=== PATIENT | male | born 1960 | race Caucasian/White ===

== ENCOUNTER 2017-04-30 02:45 | Emergency (ER) | payer OTHER, BC ==
[2017-04-30 02:54] VITALS: BP 127/95
[2017-04-30] MEDS ORDERED: BENZONATATE 100 MG CAPSULE PO ONE (04:11)
[2017-04-30] MEDS ORDERED: PREDNISONE 20 MG TABLET PO ONE (04:11)
[2017-04-30] MEDS ORDERED: IPRATROPIUM/ALBUTEROL 0.5-2.5 MG/3 ML AMPUL NEB ONE (04:11)
--- NOTE | 2017-04-30 04:24 | RADIOLOGY REPORT (SQ) ---
EXAM DESCRIPTION: CHEST SINGLE VIEW COMPLETED DATE/TIME: 04/30/2017 4:15 am REASON FOR STUDY: cough COMPARISON: Chest x-ray 02/09/2012. EXAM PARAMETERS: NUMBER OF VIEWS: One view. TECHNIQUE: Single frontal radiographic view of the chest acquired. RADIATION DOSE: NA LIMITATIONS: None. FINDINGS: LUNGS AND PLEURA: No consolidation, pneumothorax or pleural effusion. MEDIASTINUM AND HILAR STRUCTURES: No masses. Contour normal. HEART AND VASCULAR STRUCTURES: Heart normal in size. Normal vasculature. BONES: No acute findings. HARDWARE: None in the chest. IMPRESSION: NO ACUTE RADIOGRAPHIC FINDING IN THE CHEST. TECHNICAL DOCUMENTATION: JOB ID: [id number]
--- NOTE | 2017-04-30 04:36 | ER Document Report ---
ED General - General Chief Complaint: Productive Cough Stated Complaint: COUGHING UP BLOOD Time Seen by Provider: 04/30/17 03:50 Notes: Patient is a 57-year-old male without past medical history of COPD or asthma, not a smoker who presents with 2 weeks of a persistent cough and concerns of a small volume of hemoptysis the last 2 days. Patient was seen by his primary care doctor approximately 1 week ago for these symptoms and started on Tessalon Perles, albuterol and steroids without any improvement of symptoms. He reports a dry, severe cough that comes and spasms. Nothing seems to trigger the episodes and they do go away on their own. States he had 2 very small, approximately bárbara-sized blood clots come up today and this is what brought him to the emergency department. He has no history of similar symptoms in the past. No known sick contacts. No history of DVT or pulmonary embolus. He denies any chest pain or pleuritic pain. TRAVEL OUTSIDE OF THE [place] IN LAST 30 DAYS: No - Related Data Allergies/Adverse Reactions: No Known Allergies Allergy (Verified 02/22/16 08:09) Past Medical History - General Information source: Patient - Social History Smoking Status: Never Smoker Frequency of alcohol use: None Drug Abuse: None Lives with: Spouse/Significant other Family History: Reviewed & Not Pertinent Patient has suicidal ideation: No Patient has homicidal ideation: No - Past Medical History Cardiac Medical History: Reports: Hx Hypercholesterolemia Pulmonary Medical History: Denies: Hx Tuberculosis Renal/ Medical History: Denies: Hx End Stage Renal Disease, Hx Peritoneal Dialysis Past Surgical History: Reports: Hx Appendectomy. Denies: Hx Pacemaker - Immunizations Hx Diphtheria, Pertussis, Tetanus Vaccination: - unk Review of Systems - Review of Systems Notes: Constitutional: Negative for fever. HENT: Negative for sore throat. Eyes: Negative for visual changes. Cardiovascular: Negative for chest pain. Respiratory: Negative for shortness of breath. Positive for persistent cough Gastrointestinal: Negative for abdominal pain, vomiting or diarrhea. Genitourinary: Negative for dysuria. Musculoskeletal: Negative for back pain. Skin: Negative for rash. Neurological: Negative for headaches, weakness or numbness. 10 point ROS negative except as marked above and in HPI. Physical Exam - Vital signs Vitals: Temp Pulse Resp BP Pulse Ox 97.8 F 56 L 18 127/95 H 98 04/30/17 02:51 04/30/17 02:51 04/30/17 02:51 04/30/17 02:51 04/30/17 02:51 Interpretation: Normal Notes: PHYSICAL EXAMINATION: GENERAL: Well-appearing, well-nourished and in no acute distress. HEAD: Atraumatic, normocephalic. EYES: Pupils equal round and reactive to light, extraocular movements intact, sclera anicteric, conjunctiva are normal. ENT: nares patent, oropharynx clear without exudates. Moist mucous membranes. NECK: Normal range of motion, supple without lymphadenopathy LUNGS: Breath sounds clear to auscultation bilaterally and equal. No wheezes rales or rhonchi. Violent episodes of coughing HEART: Regular rate and rhythm without murmurs ABDOMEN: Soft, nontender, normoactive bowel sounds. No guarding, no rebound. No masses appreciated. EXTREMITIES: Normal range of motion, no pitting or edema. No cyanosis. NEUROLOGICAL: No focal neurological deficits. Moves all extremities spontaneously and on command. PSYCH: Normal mood, normal affect. SKIN: Warm, Dry, normal turgor, no rashes or lesions noted. Course - Re-evaluation Re-evalutation: 04/30/17 04:33 Patient presents with signs and symptoms most consistent with acute bronchitis the very small amount of associated hemoptysis. He is well-appearing, in no acute distress, does have vigorous episodes of coughing. His primary care doctor has already very appropriately treated him with steroids, albuterol and Tessalon Perles without any significant improvement. Chest x-ray here is without any evidence of an acute pneumonia. No indication for labs. His vitals are completely within normal limits without tachycardia, tachypnea or hypoxemia. I do not suspect any hemodynamically significant pulmonary hemorrhage as patient has had vigorous coughing for the past 2 weeks and is only coughed up approximately bárbara size clots which I would expect for his vigorous coughing. At this time will discharge with return precautions and follow-up recommendations. Verbal discharge instructions given a the bedside and opportunity for questions given. Medication warnings reviewed. Patient is in agreement with this plan and has verbalized understanding of return precautions and the need for primary care follow-up in the next 24-72 hours. - Vital Signs Vital signs: Temp Pulse Resp BP Pulse Ox 97.8 F 56 L 18 127/95 H 98 04/30/17 02:51 04/30/17 02:51 04/30/17 02:51 04/30/17 02:51 04/30/17 02:51 - Diagnostic Test Radiology reviewed: Image reviewed, Reports reviewed Radiology results interpreted by me: 04/30/17 04:58 Chest x-ray: No acute infiltrate or pneumothorax Discharge - Discharge Clinical Impression: Bronchitis Condition: Good Disposition: HOME, SELF-CARE Additional Instructions: You were seen for symptoms most consistent with bronchitis. This can take up to 12 weeks to fully resolve. This is generally due to a viral infection. Please follow-up with your primary doctor in the next 2-3 days. Return if you develop worsening cough, vomiting, fever >100.4, pass out, begin coughing large amounts of blood, or have any other symptoms that are concerning to you.
== END 2017-04-30 05:30 | disposition home or self-care (01) ==
LOC: ER 02:45
DX: J40 Bronchitis, not specified as acute or chronic (principal); E78.00 Pure hypercholesterolemia, unspecified
CPT/HCPCS: 71010; 99283

== ENCOUNTER 2017-10-03 06:32 | Emergency (ER) | payer OTHER, BC ==
--- NOTE | 2017-10-03 08:46 | RADIOLOGY REPORT (SQ) ---
EXAM DESCRIPTION: CT HEAD WITHOUT COMPLETED DATE/TIME: 10/03/2017 8:33 am REASON FOR STUDY: left facial numbness, stuttering COMPARISON: CT brain 02/22/2016, 02/09/2012, 08/06/2008 TECHNIQUE: Axial images acquired through the brain without intravenous contrast. Images reviewed wi th bone, brain and subdural windows. Images stored on PACS. All CT scanners at this facility use dose modulation, iterative reconstruction, and/or weight based d osing when appropriate to reduce radiation dose to as low as reasonably achievable (ALARA). [facility]: Dose Right [facility]: CareDose [facility]: Dose Right [facility]: Teradose 4D [facility]: Smart [employer] RADIATION DOSE: CT Rad equipment meets quality standard of care and radiation dose reduction techniq ues were employed. CTDIvol: 64.6 mGy. DLP: 1163 mGy-cm. mGy. LIMITATIONS: None. FINDINGS: VENTRICLES: Normal size and contour. CEREBRUM: No masses. No hemorrhage. No midline shift. No evidence for acute infarction. Normal gra y/white matter differentiation. No areas of low density in the white matter. CEREBELLUM: No masses. No hemorrhage. No alteration of density. No evidence for acute infarction. EXTRAAXIAL SPACES: No fluid collections. No masses. ORBITS AND GLOBE: No intra- or extraconal masses. Normal contour of globe without masses. CALVARIUM: No fracture. PARANASAL SINUSES: No fluid or mucosal thickening. SOFT TISSUES: No mass or hematoma. OTHER: No other significant finding. IMPRESSION: NORMAL BRAIN CT WITHOUT CONTRAST. EVIDENCE OF ACUTE STROKE: NO. COMMENT: Quality ID # [id number]: Final reports with documentation of one or more dose reduction techniques (e.g., Automated exposure control, adjustment of the mA and/or kV according to patient size, use of iterative reconstruction technique) TECHNICAL DOCUMENTATION: JOB ID: [id number] [email or web address]- All Rights Reserved
--- NOTE | 2017-10-03 08:49 | RADIOLOGY REPORT (SQ) ---
EXAM DESCRIPTION: CHEST SINGLE VIEW COMPLETED DATE/TIME: 10/03/2017 8:38 am REASON FOR STUDY: left facial numbness, stuttering COMPARISON: AP chest 04/30/2017, 02/09/2012 EXAM PARAMETERS: NUMBER OF VIEWS: One view. TECHNIQUE: Single frontal radiographic view of the chest acquired. RADIATION DOSE: NA LIMITATIONS: None. FINDINGS: LUNGS AND PLEURA: No opacities, masses or pneumothorax. No pleural effusion. MEDIASTINUM AND HILAR STRUCTURES: No masses. Contour normal. HEART AND VASCULAR STRUCTURES: Heart normal in size. Normal vasculature. BONES: No acute findings. HARDWARE: None in the chest. OTHER: No other significant finding. IMPRESSION: NO ACUTE RADIOGRAPHIC FINDING IN THE CHEST. TECHNICAL DOCUMENTATION: JOB ID: [id number] [employer]- All Rights Reserved
[2017-10-03 08:50] LABS: ABSOLUTE BASOPHILS # (AUTO) 0.1 10^3/uL (0.0-0.2); ABSOLUTE EOSINOPHILS # (AUTO) 0.3 10^3/uL (0.0-0.6); ABSOLUTE LYMPHOCYTES (AUTO) 1.5 10^3/uL (0.5-4.7); ABSOLUTE MONOCYTES (AUTO) 0.6 10^3/uL (0.1-1.4); ABSOLUTE NEUT (AUTO) 4.8 10^3/uL (1.7-8.2); EOSINOPHILS % (AUTO) 3.9 % (0-6); HEMATOCRIT 42.5 % (37.9-51.0); HEMOGLOBIN 14.7 g/dL (13.5-17.0); LYMPHOCYTES % (AUTO) 20.7 % (13-45); MEAN CORPUSCULAR HEMOGLOBIN 30.2 pg (27.0-33.4); MEAN CORPUSCULAR HGB CONC 34.6 g/dL (32.0-36.0); MEAN CORPUSCULAR VOLUME 87 fl (80-97); PLATELET COUNT 219 10^3/uL (150-450); RED BLOOD COUNT 4.86 10^6/uL (4.35-5.55); RED CELL DISTRIBUTION WIDTH 12.7 % (11.5-14.0); SEGMENTED NEUTROPHILS % (AUTO) 66.4 % (42-78); TOTAL CELLS COUNTED % (AUTO) 100 %; WHITE BLOOD COUNT 7.3 10^3/uL (4.0-10.5)
[2017-10-03 08:54] LABS: INTERNATIONAL RATION (INR) 0.89; PARTIAL THROMBOPLASTIN TIME 31.1 SEC (23.5-35.8); PROTHROMBIN TIME 12.7 SEC (11.4-15.4)
[2017-10-03] MEDS ORDERED: ONDANSETRON HCL INJ/PF 4 MG/2 ML SDV IV ONE (08:58)
[2017-10-03] MEDS ORDERED: PROCHLORPERAZINE EDISYLATE INJ 10 MG/2 ML VIAL IV ONE (08:58)
[2017-10-03] MEDS ORDERED: NORMAL SALINE 1000 ML 1,000 ML IV ONE (09:07)
--- NOTE | 2017-10-03 09:17 | EKG REPORT ---
SEVERITY:- BORDERLINE ECG - SINUS RHYTHM PROBABLE LEFT ATRIAL ABNORMALITY LOW VOLTAGE IN FRONTAL LEADS : Confirmed by: Lita Mcqueen 03-Oct-2017 09:17:15
[2017-10-03 09:19] LABS: ALANINE AMINOTRANSFERASE 63 U/L (21-72); ALBUMIN 4.7 g/dL (3.5-5.0); ALKALINE PHOSPHATASE 66 U/L (38-126); ANION GAP 11 (5-19); ASPARTATE AMINO TRANSFERASE 28 U/L (17-59); BILIRUBIN,DIRECT 0.1 mg/dL (0.0-0.4); BLOOD UREA NITROGEN 16 mg/dL (7-20); CALCIUM 9.8 mg/dL (8.4-10.2); CARBON DIOXIDE 29 mmol/L (22-30); CHLORIDE 103 mmol/L (98-107); CREATINE KINASE 90 U/L (55-170); GLUCOSE 113 mg/dL (75-110); POTASSIUM 4.2 mmol/L (3.6-5.0); TOTAL PROTEIN 6.9 g/dL (6.3-8.2)
[2017-10-03 09:31] LABS: CREATINE KINASE MB 1.57 ng/mL (<4.55)
[2017-10-03 09:34] LABS: TROPONIN I < 0.012 ng/mL
[2017-10-03] MEDS ORDERED: KETOROLAC TROMETHAMINE INJ/PF 30 MG/1 ML SDV IV ONE (10:46)
[2017-10-03] MEDS ORDERED: DEXAMETHASONE SOD PHOS INJ 10 MG/1 ML VIAL IV ONE (10:46)
--- NOTE | 2017-10-03 10:50 | ER Document Report ---
ED General - General Chief Complaint: Headache Stated Complaint: POSSIBLE MIGRAINE Time Seen by Provider: 10/03/17 08:52 TRAVEL OUTSIDE OF THE [place] IN LAST 30 DAYS: No - HPI Patient complains to provider of: Headache Notes: Patient coming in stating he is experiencing migraines. Patient states has history of migraines used to be on Topamax however had by side effects therefore and is on carbidopa for this and sending the patient does have Parkinson's disease.Taken off Topamax. Patient has a resting tremor pill- rolling his right hand patient states when he only gets a migraine headache he does have some drooping of the left side of his face. Patient also states he does develop a stutter. According to the at bedside this is normal for the patient. Patient states came in today because of worsening of headache. Denies any fevers chills nausea vomiting diarrhea denies any changes in his medications. - Related Data Allergies/Adverse Reactions: No Known Allergies Allergy (Verified 10/03/17 07:58) Past Medical History - Social History Smoking Status: Former Smoker Chew tobacco use (# tins/day): No Frequency of alcohol use: None Drug Abuse: None Family History: Reviewed & Not Pertinent Patient has suicidal ideation: No Patient has homicidal ideation: No - Past Medical History Cardiac Medical History: Reports: Hx Hypercholesterolemia Pulmonary Medical History: Denies: Hx Tuberculosis Neurological Medical History: Reports: Hx Migraine Renal/ Medical History: Denies: Hx End Stage Renal Disease, Hx Peritoneal Dialysis Past Surgical History: Reports: Hx Appendectomy. Denies: Hx Pacemaker - Immunizations Hx Diphtheria, Pertussis, Tetanus Vaccination: - unk Review of Systems - Review of Systems Constitutional: No symptoms reported EENT: No symptoms reported Cardiovascular: No symptoms reported Respiratory: No symptoms reported Gastrointestinal: No symptoms reported Genitourinary: No symptoms reported Male Genitourinary: No symptoms reported Musculoskeletal: No symptoms reported Skin: No symptoms reported Hematologic/Lymphatic: No symptoms reported Neurological/Psychological: Headaches -: Yes All other systems reviewed and negative Physical Exam - Vital signs Vitals: Temp Pulse Resp BP Pulse Ox 98.1 F 56 L 16 147/84 H 99 10/03/17 06:42 10/03/17 06:42 10/03/17 06:42 10/03/17 06:42 10/03/17 06:42 Interpretation: Normal - General General appearance: Appears well, Alert - HEENT Head: Normocephalic, Atraumatic Eyes: Normal Pupils: PERRL - Respiratory Respiratory status: No respiratory distress Chest status: Nontender Breath sounds: Normal Chest palpation: Normal - Cardiovascular Rhythm: Regular Heart sounds: Normal auscultation Murmur: No - Abdominal Inspection: Normal Distension: No distension Bowel sounds: Normal Tenderness: Nontender Organomegaly: No organomegaly - Back Back: Normal, Nontender - Extremities General upper extremity: Normal inspection, Nontender, Normal color, Normal ROM , Normal temperature, Other - Resting tremor of the right lower extremity. General lower extremity: Normal inspection, Nontender, Normal color, Normal ROM , Normal temperature, Normal weight bearing. No: Bam's sign - Neurological Neuro grossly intact: Yes Cognition: Normal Orientation: AAOx4 Marceline Coma Scale Eye Opening: Spontaneous Marceline Coma Scale Verbal: Oriented Marceline Coma Scale Motor: Obeys Commands Micaela Coma Scale Total: 15 Speech: Normal Cranial nerves: Other - Patient with slight drooping of the left eye and inability to raise his eyebrow on the left side. Patient states this is normal whenever he has a headache. No asymmetry of smile. Patient does have stuttering speech. Motor strength normal: LUE, RUE, LLE, RLE Sensory: Normal - Psychological Associated symptoms: Normal affect, Normal mood - Skin Skin Temperature: Warm Skin Moisture: Dry Skin Color: Normal Course - Re-evaluation Re-evalutation: 10/03/17 15:31 The patient presents with headache without signs of [employer] bleed, stroke, infection , or other serious etiology. The patient is neurologically intact. Given the extremely low risk of these diagnoses further testing and evaluation for these possibilities does not appear to be indicated at this time. The patient has been instructed to return if the symptoms worsen or change in any way.. Neurological symptoms have improved. Patient has less stuttering able to open his left eye. Patient states he is feeling better headache has resolved. Laboratory studies CT scan are negative for any acute pathology. Patient agrees with discharge home - Vital Signs Vital signs: Temp Pulse Resp BP Pulse Ox 97.9 F 56 L 15 122/85 99 10/03/17 11:16 10/03/17 06:42 10/03/17 11:16 10/03/17 11:16 10/03/17 11:16 - Laboratory Result Diagrams: 10/03/17 08:43 10/03/17 08:43 Laboratory results interpreted by me: 10/03/17 08:43 Glucose 113 H Discharge - Discharge Clinical Impression: Headache Qualifiers: Headache type: unspecified Headache chronicity pattern: unspecified pattern Intractability: not intractable Qualified Code(s): R51 - Headache Condition: Good Disposition: HOME, SELF-CARE Instructions: Headache ([facility]) Additional Instructions: Follow-up with your primary care provider. If her headache returns please take the Compazine Zofran together for your headache. Return to ER symptoms worsen I would recommend she discuss this with your physician for further evaluation of medications that she may be able to use for your headache such as triptan's or Fioricet. Prescriptions: Ondansetron [Zofran Odt 4 mg Tablet] 4 mg PO Q6 #30 tab.rapdis Prochlorperazine Maleate [Compazine 10 mg Tablet] 10 mg PO Q6 #30 tablet Referrals: JOSIE FLANNERY PA-C [Primary Care Provider] - Follow up as needed
[2017-10-03 11:30] VITALS: BP 122/85
== END 2017-10-03 11:46 | disposition home or self-care (01) ==
LOC: ER 06:32
DX: R51 Headache (principal); R29.810 Facial weakness; G20 Parkinson's disease; Z87.891 Personal history of nicotine dependence
CPT/HCPCS: 93005; 99284; 96361; 96374; 96375; 36415; 82553; 82550; 85025; 85610; 85730; 80053; 84484; 71045; 70450; 93010; J1885; J0780; J2405; J7030; J1100

== ENCOUNTER 2018-04-09 05:21 | Emergency (ER) | payer OTHER, BC ==
[2018-04-09] MEDS ORDERED: DIPHENHYDRAMINE HCL 50 MG/ML VIAL IV ONE (06:49)
[2018-04-09] MEDS ORDERED: METOCLOPRAMIDE HCL INJ/PF 10 MG/2 ML SDV IV ONE (06:49)
[2018-04-09] MEDS ORDERED: NORMAL SALINE 1000 ML 1,000 ML IV ONE (06:51)
--- NOTE | 2018-04-09 07:20 | ER Document Report ---
ED General - General Chief Complaint: Headache <24 hrs old Stated Complaint: HEADACHE Time Seen by Provider: 04/09/18 06:09 Mode of Arrival: Ambulatory Information source: Patient Notes: 58-year-old male with migraine headaches, cluster headaches, hypertension, and hyperlipidemia, previous history of TIA presents to the ED with acute onset generalized headache starting this morning around 4 AM. Associated nausea, blurry vision, photosensitivity and left-sided facial numbness. States this feels like his normal migraine. States he took Rizatriptan 10 mg at onset of headache with no relief, on verapamil ER as prophylaxis. Denies history of head trauma, loss of consciousness, dizziness, vomiting, chest pain. TRAVEL OUTSIDE OF THE [place] IN LAST 30 DAYS: No - HPI Onset: Just prior to arrival Onset/Duration: Sudden Quality of pain: Achy Severity: Moderate Pain Level: 3 Associated symptoms: Nausea Similar symptoms previously: Yes Recently seen / treated by doctor: No - Related Data Allergies/Adverse Reactions: No Known Allergies Allergy (Verified 10/03/17 07:58) Past Medical History - General Information source: Patient, Relative, [facility] Records - Social History Smoking Status: Never Smoker Frequency of alcohol use: None Drug Abuse: None Lives with: Spouse/Significant other Family History: Reviewed & Not Pertinent Patient has suicidal ideation: No Patient has homicidal ideation: No - Past Medical History Cardiac Medical History: Reports: Hx Hypercholesterolemia Pulmonary Medical History: Denies: Hx Tuberculosis Neurological Medical History: Reports: Hx Migraine Renal/ Medical History: Denies: Hx End Stage Renal Disease, Hx Peritoneal Dialysis Past Surgical History: Reports: Hx Appendectomy. Denies: Hx Pacemaker - Immunizations Hx Diphtheria, Pertussis, Tetanus Vaccination: - unk Review of Systems - Review of Systems Notes: REVIEW OF SYSTEMS: CONSTITUTIONAL : Denies fever, chills, or sweats. Denies recent illness. Denies weight loss, recent hospitalizations. EENT: Denies eye pain. Denies nasal or sinus congestion or discharge. Denies sore throat, oral lesions, difficulty swallowing. CARDIOVASCULAR: Denies chest pain. Denies palpitations. Denies lower extremity edema. RESPIRATORY: Denies cough, cold, or chest congestion. Denies shortness of breath, wheezing. GASTROINTESTINAL: Denies abdominal pain or distention. Denies nausea, vomiting , or diarrhea. Denies blood in vomitus, stools, or per rectum. Denies black, tarry stools. Denies constipation. GENITOURINARY: Denies difficulty urinating, painful urination, frequency, blood in urine, or vaginal discharge. MUSCULOSKELETAL: Denies back or neck pain or stiffness. Denies joint pain or swelling. SKIN: Denies rash, lesions or sores. HEMATOLOGIC : Denies easy bruising or bleeding. LYMPHATIC: Denies swollen glands. NEUROLOGICAL: Denies confusion or altered mental status. Denies passing out or loss of consciousness. Denies dizziness or lightheadedness. Denies weakness or paralysis. Denies problems difficulty with ambulation, slurred speech. Denies sensory loss, Denies seizures. PSYCHIATRIC: Denies anxiety or stress. Denies depression, suicidal ideation, or homicidal ideation. Denies visual or auditory hallucinations. Physical Exam - Vital signs Vitals: Temp Pulse Resp BP Pulse Ox 97.7 F 60 16 145/85 H 99 04/09/18 05:34 04/09/18 05:34 04/09/18 05:34 04/09/18 05:34 04/09/18 05:34 - Notes Notes: PHYSICAL EXAMINATION: GENERAL: Well-appearing, well-nourished and in no acute distress. HEAD: Atraumatic, normocephalic. EYES: Pupils equal round and reactive to light, extraocular movements intact, sclera anicteric, conjunctiva are normal. ENT: Nares patent, oropharynx clear without exudates. Moist mucous membranes. NECK: Normal range of motion, supple without lymphadenopathy LUNGS: Breath sounds clear to auscultation bilaterally and equal. No wheezes rales or rhonchi. HEART: Regular rate and rhythm without murmurs ABDOMEN: Soft, nontender, nondistended abdomen. No guarding, no rebound. No masses appreciated. Musculoskeletal: Normal range of motion, no pitting or edema. No cyanosis. NEUROLOGICAL: Cranial nerves grossly intact. Normal speech, normal gait. Normal sensory, motor exams. Patient unable to open left eye. PSYCH: Normal mood, normal affect. SKIN: Warm, Dry, normal turgor, no rashes or lesions noted. Course - Re-evaluation Re-evalutation: 04/09/18 10:24 Laboratory 04/09/18 04/09/18 04/09/18 07:45 08:00 08:00 WBC 7.2 RBC 4.90 Hgb 15.2 Hct 43.4 MCV 89 MCH 31.1 MCHC 35.1 RDW 12.8 Plt Count 220 Seg Neutrophils % 55.7 Lymphocytes % 31.5 Monocytes % 8.6 Eosinophils % 3.4 Basophils % 0.8 Absolute Neutrophils 4.0 Absolute Lymphocytes 2.3 Absolute Monocytes 0.6 Absolute Eosinophils 0.2 Absolute Basophils 0.1 PT 13.8 INR 1.01 APTT 31.1 Sodium Potassium Chloride Carbon Dioxide Anion Gap BUN Creatinine Est GFR ( Amer) Est GFR (Non-Af Amer) Glucose Calcium Total Bilirubin Direct Bilirubin Neonat Total Bilirubin Neonat Direct Bilirubin Neonat Indirect Bili AST ALT Alkaline Phosphatase Troponin I Total Protein Albumin Urine Color STRAW Urine Appearance CLEAR Urine pH 6.0 Ur Specific [place] 1.005 Urine Protein NEGATIVE Urine Glucose (UA) NEGATIVE Urine Ketones NEGATIVE Urine Blood NEGATIVE Urine Nitrite NEGATIVE Urine Bilirubin NEGATIVE Urine Urobilinogen NEGATIVE Ur Leukocyte Esterase NEGATIVE Urine WBC (Auto) 0 Urine RBC (Auto) 0 Squamous Epi Cells Auto <1 Urine Mucus (Auto) RARE Urine Ascorbic Acid NEGATIVE 04/09/18 04/09/18 08:00 08:00 WBC RBC Hgb Hct MCV MCH MCHC RDW Plt Count Seg Neutrophils % Lymphocytes % Monocytes % Eosinophils % Basophils % Absolute Neutrophils Absolute Lymphocytes Absolute Monocytes Absolute Eosinophils Absolute Basophils PT INR APTT Sodium 143.6 Potassium 4.6 Chloride 105 Carbon Dioxide 27 Anion Gap 12 BUN 17 Creatinine 0.75 Est GFR ( Amer) > 60 Est GFR (Non-Af Amer) > 60 Glucose 107 Calcium 9.6 Total Bilirubin 1.0 Direct Bilirubin 0.2 Neonat Total Bilirubin Not Reportable Neonat Direct Bilirubin Not Reportable Neonat Indirect Bili Not Reportable AST 23 ALT 38 Alkaline Phosphatase 65 Troponin I < 0.012 Total Protein 7.3 Albumin 4.4 Urine Color Urine Appearance Urine pH Ur Specific [place] Urine Protein Urine Glucose (UA) Urine Ketones Urine Blood Urine Nitrite Urine Bilirubin Urine Urobilinogen Ur Leukocyte Esterase Urine WBC (Auto) Urine RBC (Auto) Squamous Epi Cells Auto Urine Mucus (Auto) Urine Ascorbic Acid Head CT 04/09/18 06:49 IMPRESSION: Normal CT of the head. Chest X-Ray 04/09/18 06:50 IMPRESSION: NO ACUTE RADIOGRAPHIC FINDING IN THE CHEST. 04/09/18 10:27 58-year-old male with migraine headaches, cluster headaches presents with an acute onset of headache that started just prior to arrival. Patient's headache initially right-sided but now generalized. He does have left eye droop and left facial numbness which he states is normal for his headache. He presented after his home medications did not work. He has had associated nausea, photophobia. Patient was seen by myself upon arrival. Vital signs were reviewed. Patient is afebrile, normotensive and not hypoxic. Patient does not appear toxic or dehydrated. They are in no acute distress. Previous medical records and nursing notes reviewed. Significant findings include an exam that shows the patient is unable to open his left eye. Otherwise he has a normal neurologic exam. Patient and states that this left eye symptom is typical of his migraine headaches. Patient did have an episode of becoming unresponsive during IV placement which the reports is typical for him. He quickly came to and was speaking normally. Patient was placed on oxygen since he reports this does help his headaches at times. He was placed on schedule hanger after his syncopal episode. CT of the head was obtained and showed no acute process. Chest x-ray also within normal limits. Laboratory testing within normal limits. Patient did receive Reglan, Benadryl, Toradol and IV fluids during his ED course. On reevaluation patient has now able to open his left eye and reports an improvement of his headache. Patient is requesting discharge home. Patient provided the opportunity to ask questions, and express concerns. Discharge instructions discussed. Patient is agreeable with discharge home. Return indications explained and discussed with the patient who displays understanding. Patient encouraged to return to the emergency department immediately with any concerns. Patient states that he does not need any home-going medications at this time. 04/09/18 10:29 04/09/18 10:31 04/09/18 10:31 - Vital Signs Vital signs: Temp Pulse Resp BP Pulse Ox 97.7 F 60 14 129/73 H 100 04/09/18 05:34 04/09/18 05:34 04/09/18 09:01 04/09/18 09:01 04/09/18 09:01 - Laboratory Result Diagrams: 04/09/18 08:00 04/09/18 08:00 - Diagnostic Test Radiology reviewed: Image reviewed, Reports reviewed - EKG Interpretation by Me EKG shows normal: Sinus rhythm Rate: Bradycardia Rhythm: NSR When compared to previous EKG there are: No significant change Discharge - Discharge Clinical Impression: Nausea, Visual disturbance-resolved Headache Qualifiers: Headache type: unspecified Headache chronicity pattern: unspecified pattern Intractability: not intractable Qualified Code(s): R51 - Headache Condition: Good Disposition: HOME, SELF-CARE Instructions: Cluster Headache ([facility]), Headache ([facility]) Referrals: JOSIE FLANNERY PA-C [Primary Care Provider] - Follow up as needed
--- NOTE | 2018-04-09 07:25 | RADIOLOGY REPORT (SQ) ---
EXAM DESCRIPTION: CT HEAD WITHOUT IV CONTRAST COMPLETED DATE/TME: 04/09/2018 06:49 CLINICAL HISTORY: 58 years Male, headache COMPARISON: 2.8.16 TECHNIQUE: No contrast. Coronal and sagittal reformat. This exam was performed according to our departmental dose-optimization program, which includes automated exposure control, adjustment of the mA and/or kV according to patient size and/or use of iterative reconstruction technique. FINDINGS: No hemorrhage or infarct. No mass, mass effect, or midline shift. Brain and extra-axial structures appear intact. IMPRESSION: Normal CT of the head.
--- NOTE | 2018-04-09 07:55 | RADIOLOGY REPORT (SQ) ---
EXAM DESCRIPTION: CHEST 2 VIEWS COMPLETED DATE/TIME: 04/09/2018 7:19 am REASON FOR STUDY: tia COMPARISON: AP chest 10/03/2017 EXAM PARAMETERS: NUMBER OF VIEWS: two views TECHNIQUE: Digital Frontal and Lateral radiographic views of the chest acquired. RADIATION DOSE: NA LIMITATIONS: none FINDINGS: LUNGS AND PLEURA: No opacities, masses or pneumothorax. No pleural effusion. MEDIASTINUM AND HILAR STRUCTURES: No masses or contour abnormalities. HEART AND VASCULAR STRUCTURES: Heart normal size. No evidence for failure. BONES: No acute findings. HARDWARE: None in the chest. OTHER: No other significant finding. IMPRESSION: NO ACUTE RADIOGRAPHIC FINDING IN THE CHEST. TECHNICAL DOCUMENTATION: JOB ID: [id number] [employer]- All Rights Reserved Reading location - IP/workstation name: [email or web address]
[2018-04-09] MEDS ORDERED: LORAZEPAM INJ 2 MG/1 ML VIAL IV ONE (08:30)
[2018-04-09] MEDS ORDERED: KETOROLAC TROMETHAMINE INJ/PF 30 MG/1 ML SDV IV ONE (08:30)
[2018-04-09 09:08] LABS: ABSOLUTE BASOPHILS # (AUTO) 0.1 10^3/uL (0.0-0.2); ABSOLUTE EOSINOPHILS # (AUTO) 0.2 10^3/uL (0.0-0.6); ABSOLUTE LYMPHOCYTES (AUTO) 2.3 10^3/uL (0.5-4.7); ABSOLUTE MONOCYTES (AUTO) 0.6 10^3/uL (0.1-1.4); BASOPHILS % (AUTO) 0.8 % (0-2); EOSINOPHILS % (AUTO) 3.4 % (0-6); HEMATOCRIT 43.4 % (37.9-51.0); HEMOGLOBIN 15.2 g/dL (13.5-17.0); LYMPHOCYTES % (AUTO) 31.5 % (13-45); MEAN CORPUSCULAR HEMOGLOBIN 31.1 pg (27.0-33.4); MEAN CORPUSCULAR HGB CONC 35.1 g/dL (32.0-36.0); MEAN CORPUSCULAR VOLUME 89 fl (80-97); MONOCYTES % (AUTO) 8.6 % (3-13); PLATELET COUNT 220 10^3/uL (150-450); RED CELL DISTRIBUTION WIDTH 12.8 % (11.5-14.0); SEGMENTED NEUTROPHILS % (AUTO) 55.7 % (42-78); TOTAL CELLS COUNTED % (AUTO) 100 %; WHITE BLOOD COUNT 7.2 10^3/uL (4.0-10.5)
[2018-04-09 09:12] LABS: APPEARANCE,URINE CLEAR; BILIRUBIN,URINE NEGATIVE (NEGATIVE); COLOR,URINE STRAW; GLUCOSE, URINE NEGATIVE (NEGATIVE); KETONES,URINE NEGATIVE (NEGATIVE); LEUKOCYTE ESTERASE,URINE NEGATIVE (NEGATIVE); NITRITE,URINE NEGATIVE (NEGATIVE); PROTEIN,URINE NEGATIVE (NEGATIVE); URINE SPECIFIC GRAVITY 1.005; UROBILINOGEN,URINE NEGATIVE mg/dL (<2.0)
[2018-04-09 09:16] LABS: INTERNATIONAL RATION (INR) 1.01; PROTHROMBIN TIME 13.8 SEC (11.4-15.4)
[2018-04-09 09:17] LABS: PARTIAL THROMBOPLASTIN TIME 31.1 SEC (23.5-35.8)
[2018-04-09 09:23] LABS: ALANINE AMINOTRANSFERASE 38 U/L (21-72); ALBUMIN 4.4 g/dL (3.5-5.0); ALKALINE PHOSPHATASE 65 U/L (38-126); ANION GAP 12 (5-19); ASPARTATE AMINO TRANSFERASE 23 U/L (17-59); BILIRUBIN,DIRECT 0.2 mg/dL (0.0-0.4); BLOOD UREA NITROGEN 17 mg/dL (7-20); CALCIUM 9.6 mg/dL (8.4-10.2); CARBON DIOXIDE 27 mmol/L (22-30); CHLORIDE 105 mmol/L (98-107); GLUCOSE 107 mg/dL (75-110); POTASSIUM 4.6 mmol/L (3.6-5.0); SODIUM 143.6 mmol/L (137-145); TOTAL PROTEIN 7.3 g/dL (6.3-8.2)
[2018-04-09 10:43] VITALS: BP 117/81
--- NOTE | 2018-04-09 13:13 | EKG REPORT ---
SEVERITY:- OTHERWISE NORMAL ECG - SINUS BRADYCARDIA LOW VOLTAGE IN FRONTAL LEADS : Confirmed by: Minesh Ta MD 09-Apr-2018 13:12:39
== END 2018-04-09 10:43 | disposition home or self-care (01) ==
LOC: ER 05:21
DX: R51 Headache (principal); R11.0 Nausea; H53.9 Unspecified visual disturbance; R20.0 Anesthesia of skin; I10 Essential (primary) hypertension; E78.5 Hyperlipidemia, unspecified; Z86.73 Personal history of transient ischemic attack (TIA), and cerebral infarction without residual deficits
CPT/HCPCS: 93005; 99285; 96361; 96374; 96375; 36415; 85025; 85610; 85730; 80053; 81001; 84484; 71046; 70450; 93010; J1200; J1885; J2765; J2060; J7030

== ENCOUNTER 2019-06-05 21:37 | Emergency (ER) | payer OTHER, BC ==
--- NOTE | 2019-06-05 21:54 | ER Document Report ---
ED Medical Screen (RME) - General Chief Complaint: Blood Pressure Problem Stated Complaint: BLOOD PRESSURE ISSUES Time Seen by Provider: 06/05/19 21:45 Primary Care Provider: JOSIE FLANNERY PA-C [Primary Care Provider] - Follow up as needed Mode of Arrival: Wheelchair Information source: Patient Notes: 59-year-old male with history of high blood pressure migraines and tremors presents emergency department with reports of high blood pressure prior to arrival. Reports he was taking a shower he just started feeling bad. Took his blood pressure and noted it was high. He is taking it several more times and it keeps increasing. Patient also has a history of migraines and reports he has a headache. Left eye is partially closed he reports this is what happens when he has a migraine. He did take his migraine medications approximately 45 minutes ago. Reports nausea declined antinausea medicine. No complaints of chest pain or shortness of breath. I have greeted and performed a rapid initial assessment of this patient. A comprehensive ED assessment and evaluation of the patient, analysis of test results and completion of the medical decision making process will be conducted by additional ED providers. Dictation of this chart was performed using voice recognition software; therefore, there may be some unintended grammatical errors. TRAVEL OUTSIDE OF THE [place] IN LAST 30 DAYS: No - Related Data Allergies/Adverse Reactions: No Known Allergies Allergy (Verified 10/03/17 07:58) Past Medical History - Past Medical History Cardiac Medical History: Reports: Hx Hypercholesterolemia Pulmonary Medical History: Denies: Hx Tuberculosis Neurological Medical History: Reports: Hx Migraine Renal/ Medical History: Denies: Hx End Stage Renal Disease, Hx Peritoneal Dialysis Past Surgical History: Reports: Hx Appendectomy. Denies: Hx Pacemaker - Immunizations Hx Diphtheria, Pertussis, Tetanus Vaccination: - unk Doctor's Discharge - Discharge Referrals: JOSIE FLANNERY PA-C [Primary Care Provider] - Follow up as needed
[2019-06-05 22:15] LABS: ABSOLUTE BASOPHILS # (AUTO) 0.1 10^3/uL (0.0-0.2); ABSOLUTE EOSINOPHILS # (AUTO) 0.3 10^3/uL (0.0-0.6); ABSOLUTE LYMPHOCYTES (AUTO) 2.9 10^3/uL (0.5-4.7); ABSOLUTE MONOCYTES (AUTO) 0.6 10^3/uL (0.1-1.4); ABSOLUTE NEUT (AUTO) 5.6 10^3/uL (1.7-8.2); BASOPHILS % (AUTO) 0.8 % (0-2); HEMATOCRIT 45.4 % (37.9-51.0); HEMOGLOBIN 15.6 g/dL (13.5-17.0); LYMPHOCYTES % (AUTO) 30.8 % (13-45); MEAN CORPUSCULAR HEMOGLOBIN 29.9 pg (27.0-33.4); MEAN CORPUSCULAR HGB CONC 34.3 g/dL (32.0-36.0); MEAN CORPUSCULAR VOLUME 87 fl (80-97); MONOCYTES % (AUTO) 6.7 % (3-13); PLATELET COUNT 231 10^3/uL (150-450); RED BLOOD COUNT 5.21 10^6/uL (4.35-5.55); RED CELL DISTRIBUTION WIDTH 12.8 % (11.5-14.0); SEGMENTED NEUTROPHILS % (AUTO) 58.7 % (42-78); TOTAL CELLS COUNTED % (AUTO) 100 %; WHITE BLOOD COUNT 9.5 10^3/uL (4.0-10.5)
[2019-06-05 22:35] LABS: ALBUMIN 4.7 g/dL (3.5-5.0); ALKALINE PHOSPHATASE 62 U/L (38-126); ANION GAP 11 (5-19); ASPARTATE AMINO TRANSFERASE 22 U/L (17-59); BILIRUBIN,DIRECT 0.1 mg/dL (0.0-0.4); BILIRUBIN,TOTAL 0.4 mg/dL (0.2-1.3); BLOOD UREA NITROGEN 22 mg/dL (7-20); CALCIUM 9.7 mg/dL (8.4-10.2); CARBON DIOXIDE 27 mmol/L (22-30); CHLORIDE 104 mmol/L (98-107); CREATINE KINASE 64 U/L (55-170); GLUCOSE 166 mg/dL (75-110); POTASSIUM 3.9 mmol/L (3.6-5.0); TOTAL PROTEIN 7.5 g/dL (6.3-8.2)
[2019-06-05 22:46] LABS: CREATINE KINASE MB 1.21 ng/mL (<4.55)
[2019-06-05 22:48] LABS: TROPONIN I < 0.012 ng/mL
[2019-06-05] MEDS ORDERED: METOCLOPRAMIDE HCL INJ/PF 10 MG/2 ML SDV IV ONE (23:57)
[2019-06-05] MEDS ORDERED: DIPHENHYDRAMINE HCL 50 MG/ML VIAL IV ONE (23:58)
--- NOTE | 2019-06-06 | ER Document Report ---
ED Headache - General Chief Complaint: Headache Stated Complaint: BLOOD PRESSURE ISSUES Time Seen by Provider: 06/05/19 21:45 Primary Care Provider: JOSIE FLANNERY PA-C [Primary Care Provider] - Follow up as needed Mode of Arrival: Wheelchair Notes: Patient is a 59-year-old male that comes emergency department with chief complaint of headache and concerns about his blood pressure being elevated. He states he started getting a headache, he states when he gets this it is a throbbing pain on the left side behind his eye, he has tears from the eye and he has difficulty opening the eye, he also gets numbness along the left side of his face. He states that he gets this exact same pattern every time. He took his home medication for this and his headache has improved but not resolved. He states he is diagnosed with both cluster headaches and migraine headaches. He has had CAT scans of the headache for the same thing in the past which are negative. His blood pressure was 150 systolic at home when he checked it, he is on 2 blood pressure medications. He denies vomiting, he denies visual deficit except he has difficulty opening the left eye, he denies fever or neck pain. He denies chest pain or shortness of breath. TRAVEL OUTSIDE OF THE [place] IN LAST 30 DAYS: No - Related Data Allergies/Adverse Reactions: No Known Allergies Allergy (Verified 10/03/17 07:58) Past Medical History - General Information source: Patient - Social History Smoking Status: Former Smoker Frequency of alcohol use: None Drug Abuse: None Lives with: Family Family History: Reviewed & Not Pertinent Patient has suicidal ideation: No Patient has homicidal ideation: No - Past Medical History Cardiac Medical History: Reports: Hx Hypercholesterolemia Pulmonary Medical History: Denies: Hx Tuberculosis Neurological Medical History: Reports: Hx Migraine Renal/ Medical History: Denies: Hx End Stage Renal Disease, Hx Peritoneal Dialysis Past Surgical History: Reports: Hx Appendectomy. Denies: Hx Pacemaker - Immunizations Hx Diphtheria, Pertussis, Tetanus Vaccination: - unk Review of Systems - Review of Systems Constitutional: No symptoms reported EENT: See HPI Cardiovascular: No symptoms reported Respiratory: No symptoms reported Gastrointestinal: No symptoms reported Genitourinary: No symptoms reported Male Genitourinary: No symptoms reported Musculoskeletal: No symptoms reported Skin: No symptoms reported Hematologic/Lymphatic: No symptoms reported Neurological/Psychological: See HPI Physical Exam - Vital signs Vitals: Temp Pulse Resp BP Pulse Ox 97.6 F 105 H 18 162/97 H 98 06/05/19 21:52 06/05/19 21:52 06/05/19 21:52 06/05/19 21:52 06/05/19 21:52 - Notes Notes: GENERAL: Alert, interacts well. Patient appears uncomfortable HEAD: Normocephalic, atraumatic. EYES: Pupils equal, round, and reactive to light. Extraocular movements intact. Patient with inability to open the left eye without me opening for them passively. EOMs are still intact, pupil appears normal regardless. Occasionally tears noted from the left eye. ENT: Oral mucosa moist, tongue midline. Oropharynx unremarkable. Airway patent. Nares patent, no nasal septal hematoma, TM's intact. NECK: Full range of motion. Supple. Trachea midline. LUNGS: Clear to auscultation bilaterally, no wheezes, rales, or rhonchi. No respiratory distress. HEART: Regular rate and rhythm. No murmur ABDOMEN: Soft, non-tender. Non-distended. Bowel sounds present in all 4 quadrants. GENITOURINARY: Deferred EXTREMITIES: Moves all 4 extremities spontaneously. No edema, normal radial and dorsalis pedis pulses bilaterally. No cyanosis. Tremor noted in the right arm mainly. BACK: no cervical, thoracic, lumbar midline tenderness. No saddle anesthesia, normal distal neurovascular exam. Moves all extremities in full range of motion. NEUROLOGICAL: Alert and oriented x3. Normal speech. Numbness over the left nasolabial fold area and slightly over the left face. Cranial nerves II through XII grossly intact otherwise. PSYCH: Normal affect, normal mood. SKIN: Warm, dry, normal turgor. No rashes or lesions noted. Course - Re-evaluation Re-evalutation: Patient does have difficulty opening the left eye, I cannot evaluate the eye clearly without pulling up in the eyelids, he does have some tears from the left eye as well, he also reports numbness to the left side of the face. He states he gets this frequently with headache and this is completely within his normal headache. He did have a CAT scan of the head which was negative last year with the same presentation. He did not have chest pain, vomiting, or any other complaints. I discussed with patient, decision was made to proceed with treatm ent first. He will be given 100% oxygen for the cluster component and he will be treated for suspected vascular spasm/migraine component. On reevaluation patient states his headache is gone, he now can open the left eye spontaneously, he states appreciation and that he is ready to leave. Work- up is nonspecific, blood pressure is unremarkable, no additional concerning symptoms reported. CBC unremarkable, chemistry and troponin reviewed from triage and unremarkable, EKG unremarkable. Patient will also be given dexamethasone in an attempt to reduce his headaches, he states he has been getting them frequently. He also requests a work note. Patient does have good follow-up. Discussed return precautions, patient states appreciation and agreement. - Vital Signs Vital signs: Temp Pulse Resp BP Pulse Ox 98.0 F 105 H 12 127/74 H 97 06/06/19 03:20 06/05/19 21:52 06/06/19 03:01 06/06/19 03:01 06/06/19 03:01 - Laboratory Result Diagrams: 06/05/19 21:55 06/05/19 21:55 Laboratory results interpreted by me: 06/05/19 21:55 BUN 22 H Glucose 166 H - EKG Interpretation by Me Additional EKG results interpreted by me: EKG shows sinus rhythm at a rate of 63, QTC 398, no T wave inversions or ST segment changes in consecutive leads. Discharge - Discharge Clinical Impression: Headache Qualifiers: Headache type: unspecified Headache chronicity pattern: acute headache Intr actability: not intractable Qualified Code(s): R51 - Headache Disposition: HOME, SELF-CARE Additional Instructions: Your work-up does not show any concerning findings. Continue home medications for cluster headaches and migraines. Your blood pressure evaluation in the emergency department was reassuring. Have this routinely rechecked by your primary care. Return to the emergency department for any concerning or worsening symptoms including return to headache, vomiting, fever, passing out, or any other c oncerning or worsening symptoms. Forms: Return to Work Referrals: JOSIE FLANNERY PA-C [Primary Care Provider] - Follow up as needed
[2019-06-06 03:06] VITALS: BP 127/74
[2019-06-06] MEDS ORDERED: DEXAMETHASONE SOD PHOS INJ 10 MG/1 ML VIAL IV ONE (03:06)
--- NOTE | 2019-06-06 08:07 | EKG REPORT ---
SEVERITY:- OTHERWISE NORMAL ECG - SINUS RHYTHM RIGHT AXIS DEVIATION EARLY PRECORDIAL TRANSITION , UNCHANGED FROM PREV. EKG : Confirmed by: Minesh Ta MD 06-Jun-2019 08:06:59
== END 2019-06-06 03:28 | disposition home or self-care (01) ==
LOC: ER 21:37
DX: R51 Headache (principal); R03.0 Elevated blood-pressure reading, without diagnosis of hypertension
CPT/HCPCS: 93005; 99283; 96374; 96375; 36415; 82553; 82550; 85025; 80053; 84484; 93010; J1200; J2765; J1100